=== PATIENT | female | born 1990 | race Caucasian/White ===

== ENCOUNTER → 2017-05-31 | Outpatient (CLI) | payer OTHER | LOC: M RAD 13:57 | DX: N63.0 Unspecified lump in unspecified breast (principal) ==

== ENCOUNTER 2017-07-31 21:57 | Emergency (ER) | payer OTHER ==
[2017-07-31 22:48] LABS: GLUCOSE, URINE (UA) MANUAL OBSCURED mg/dL (NEGATIVE); KETONE, URINE MANUAL OBSCURED mg/dL (NEGATIVE); PROTEIN, URINE MANUAL REFLEX OBSCURED mg/dL (NEGATIVE); SP GRAVITY,URINE MANUAL REFLEX 1.023 (1.002-1.035)
[2017-07-31 22:49] LABS: BILIRUBIN, URINE MANUAL OBSCURED (NEGATIVE); BLOOD URINE MANUAL RFX POSITIVE (NEGATIVE); MICROSCOPIC INDICATED? RFX YES (NO); NITRITE, URINE MANUAL RFX OBSCURED (NEGATIVE); UROBILINOGEN, URINE MANUAL OBSCURED mg/dl (NORMAL)
[2017-07-31 23:15] LABS: BACTERIA, URINE LARGE AMOUNT; HYALINE CAST, URINE NONE SEEN /lpf (0-1); RBC, URINE TNTC /hpf (0-3); SQUAMOUS EPITHELIAL CELL URINE SMALL AMOUNT /hpf (SMALL AMT); WBC, URINE MAN RFX TNTC /hpf (0-3)
[2017-07-31 23:17] LABS: MICROSCOPIC EXAM PERFORMED
== END 2017-08-01 02:14 | disposition left against medical advice (07) ==
LOC: M ED 21:57
DX: N39.9 Disorder of urinary system, unspecified (principal); Z53.21 Procedure and treatment not carried out due to patient leaving prior to being seen by health care provider
CPT/HCPCS: 81000